=== PATIENT | female | born 1990 | race Caucasian/White ===

== ENCOUNTER → 2024-01-11 09:56 | Outpatient (BNVA) | payer OTHER, SELFPAY | PROVIDERS: PCP Family Medicine; Referring Provider Family Medicine; Visit Provider Nurse Practitioner Family | DX: L72.0 Epidermal cyst (principal); L91.0 Hypertrophic scar; D23.61 Other benign neoplasm of skin of right upper limb, including shoulder; D22.5 Melanocytic nevi of trunk; Z87.2 Personal history of diseases of the skin and subcutaneous tissue | CPT/HCPCS: 99203 ==

== ENCOUNTER → 2024-03-11 15:30 | Outpatient (BNVA) | payer OTHER, MEDICAID, SELFPAY | PROVIDERS: PCP Family Medicine; Visit Provider Emergency Medicine | DX: J02.9 Acute pharyngitis, unspecified (principal); J02.0 Streptococcal pharyngitis | CPT/HCPCS: 87071; 87880 ==

== ENCOUNTER → 2024-03-16 07:50 | Outpatient (BNVA) | payer OTHER, MEDICAID, SELFPAY | PROVIDERS: PCP Family Medicine; Visit Provider Dermatology | DX: D48.5 Neoplasm of uncertain behavior of skin (principal) | CPT/HCPCS: 11403; 13101 ==

== ENCOUNTER → 2024-05-20 07:59 | Outpatient (BNVA) | payer OTHER, MEDICAID, SELFPAY | PROVIDERS: PCP Family Medicine; Visit Provider Nurse Practitioner Women's Health | DX: N92.6 Irregular menstruation, unspecified (principal) | CPT/HCPCS: 81025 ==

== ENCOUNTER 2024-05-26 10:38 | Outpatient (CLI) | payer OTHER, MEDICAID, SELFPAY ==
--- NOTE | 2024-05-26 10:47 | US_ITS ---
WS: [id number] EARLY OBSTETRICAL ULTRASOUND (<14 WEEKS). HISTORY: O36.80X0 - with inconclusive viability, n... COMPARISON: None available. Single intrauterine gestational sac is identified. Cardiac activity at 159 BPM. [place]-rump length morgan sures 1.3 cm which corresponds to a gestation of 7w3d. Normal-appearing yolk sac and amnion demonstra navdeep. No subchorionic hemorrhage. No free fluid. LEFT ovary slightly enlarged measuring 3.8 x 2.8 x 4.0 cm. Within the central ovary is a minimally co mplex cyst consistent with a corpus luteum of with increased vascularity. Corpus luteum morgan sures 2.2 x 1.6 cm. RIGHT ovary is normal size 4.0 x 2.0 x 3.3 cm. Normal vascularity. US/US OB transvaginal [id number] IMPRESSION: 1. Single intrauterine gestation of 7w3d with an EDC of 01/09/2025. 2. Normal embryonic cardiac activity.
== END 2024-05-26 10:39 | disposition home or self-care (01) ==
LOC: RAD 10:42
PROVIDERS: PCP Family Medicine; Visit Provider Nurse Practitioner Women's Health
DX: O36.80X0 Pregnancy with inconclusive fetal viability, not applicable or unspecified (principal); Z34.91 Encounter for supervision of normal pregnancy, unspecified, first trimester; Z3A.01 Less than 8 weeks gestation of pregnancy
CPT/HCPCS: 76817

== ENCOUNTER → 2024-06-06 08:02 | Outpatient (BNVA) | payer OTHER, MEDICAID, SELFPAY | PROVIDERS: PCP Family Medicine; Visit Provider Nurse Practitioner Women's Health | DX: Z34.90 Encounter for supervision of normal pregnancy, unspecified, unspecified trimester (principal) | CPT/HCPCS: 80307; 84315; 85025; 86592; 86762; 86803; 86850; 86900; 87086; 87340; 87806 ==

== ENCOUNTER → 2024-06-15 16:17 | Outpatient (BNVA) | payer OTHER, MEDICAID, SELFPAY | PROVIDERS: PCP Family Medicine; Visit Provider Nurse Practitioner | DX: R05.9 Cough, unspecified (principal) | CPT/HCPCS: 87426 ==

== ENCOUNTER → 2024-06-23 16:38 | Outpatient (BNVA) | payer OTHER, MEDICAID, SELFPAY | PROVIDERS: PCP Family Medicine; Visit Provider Nurse Practitioner Women's Health | DX: Z34.80 Encounter for supervision of other normal pregnancy, unspecified trimester (principal); Z34.90 Encounter for supervision of normal pregnancy, unspecified, unspecified trimester; E66.01 Morbid (severe) obesity due to excess calories | CPT/HCPCS: 82950 ==

== ENCOUNTER → 2024-06-27 08:09 | Outpatient (BNVA) | payer OTHER, MEDICAID, SELFPAY | PROVIDERS: PCP Family Medicine; Visit Provider Obstetrics & Gynecology | DX: Z34.80 Encounter for supervision of other normal pregnancy, unspecified trimester (principal) | CPT/HCPCS: 82951; 82952; 84315 ==

== ENCOUNTER 2024-07-20 09:11 | Emergency (ER) | payer OTHER, MEDICAID, SELFPAY ==
[2024-07-20 09:29] VITALS: BP 112/64; PULSE 79; RESP 18; TEMP 36.7; O2SAT 98; BMI 45.3
--- NOTE | 2024-07-20 10:07 | USR_ITS ---
PROCEDURE INFORMATION: Exam: US , Limited Exam date and time: 07/20/2024 10:22 AM Age: 34 years old Clinical indication: Screening exam; Routine US, uterus; Additional info: Llq pain, 16 weeeks preg LABS AND CLINICAL REPORTS: Gestational age (Established): 15 w 6 d Estimated due date (Established): 01/05/2025 TECHNIQUE: Imaging protocol: Real-time ultrasound of the maternal uterus with image documentation. Exam focused on the clinical indication. COMPARISON: US OB transvaginal [id number] 05/26/2024 10:52 AM FINDINGS: Gestation: There is a single live intrauterine gestation identified. heart rate: 147 bpm. Placenta: The placenta is anteriorly located. MATERNAL: Cervix: The cervical length measures 4.8 cm. The cervix appears to be closed. Left ovary/adnexa: There is a simple appearing left ovarian cyst measuring 2.3 x 2.2 x 2.1 cm. US/US OB limited [id number] IMPRESSION: 1. Single live intrauterine gestation. The cervix appears to be closed. 2. Simple appearing left ovarian cyst.
[2024-07-20 10:11] VITALS: BP 114/64; PULSE 71; O2SAT 100
--- NOTE | 2024-07-20 10:15 | W.ED.ABDPA2 ---
HPI - Abdominal Pain General: Chief Complaint: Abdominal Pain Stated Complaint: abd pain /burping constantly (18wks preg) Time Seen by Provider: 07/20/24 10:02 History of Present Illness: 34-year-old female who is around 16 weeks who presents emergency room with belching and left lower quadrant abdominal pain. She said she has been having indigestion and belching. She had an episode of this a couple days ago and then again this morning. She said the belching was just terrible. She is also concerned about some left lower quadrant abdominal pain. Pain is not present at this time. No vaginal bleeding. No vaginal discharge. No dysuria. This seems to be in response to certain foods Related Data Home Medications Medication Instructions Recorded Confirmed docosahexaenoic acid 200 mg 200 mg PO DAILY 05/20/24 07/20/24 capsule ( DHA) fexofenadine 60 mg tablet 60 mg PO Q12H 07/20/24 07/20/24 Previous Rx's Medication Instructions Recorded diphenhydramine HCl 25 mg capsule 25 mg PO .q hs PRN allergy 04/25/24 symptoms/drainage #60 caps sertraline 100 mg tablet 100 mg PO DAILY #90 tabs 04/25/24 fluticasone propionate 50 1 spray intranasal BID 06/30/24 mcg/actuation nasal allergy/congestion #16 grams spray,suspension (Flonase Allergy Relief) famotidine 40 mg tablet 40 mg PO DAILY #30 tabs 07/20/24 Allergies Allergy/AdvReac Type Severity Reaction Status Date / Time No Known Allergies Allergy Verified 06/27/24 14:56 Review of Systems Narrative: Constitutional symptoms: Negative except as documented in HPI. Skin symptoms: Negative except as documented in HPI. Eye symptoms: Negative except as documented in HPI. ENMT symptoms: Negative except as documented in HPI. Respiratory symptoms: Negative except as documented in HPI. Cardiovascular symptoms: Negative except as documented in HPI. Gastrointestinal symptoms: Negative except as documented in HPI. Genitourinary symptoms: Negative except as documented in HPI. Musculoskeletal symptoms: Negative except as documented in HPI. Neurologic symptoms: Negative except as documented in HPI. Psychiatric symptoms: Negative except as documented in HPI. Endocrine symptoms: Negative except as documented in HPI. [facility] ED PFSH: Medical History Seasonal allergic rhinitis PTSD (post-traumatic stress disorder) Depression Anxiety History of skin cancer (~2022) feels it was basal cell -- 3 areas removed Bilateral carpal tunnel syndrome Surgical History H/O removal of cyst (~03/2024) performed by Dr. Clay-- likely sebaceous History of adenoidectomy Family History Father Aneurysm brain aneurysm Denies family history of Colon cancer Ovarian cancer Prostate cancer Diabetes Heart disease Hyperlipidemia Breast cancer Hypertension Uterine cancer Stroke Physical Exam Narrative: EXAM NARRATIVE: General: Alert, no acute distress. Skin: Warm, dry. Head: Normocephalic, atraumatic. Neck: Supple, trachea midline. Eye: Extraocular movements are intact. Ears, nose, mouth and throat: mucosa moist. Cardiovascular: Regular, Normal peripheral perfusion. Respiratory: Lungs are clear to auscultation, respirations are non-labored, breath sounds are equal, Symmetrical chest wall expansion. Gastrointestinal: Soft, Nontender, Non distended Musculoskeletal: Normal ROM, no deformity. Neurological: Alert and oriented, No focal neurological deficit observed. Psychiatric: Cooperative, appropriate mood & affect. Course Vital Signs: Vital signs: Vital Signs Temperature 98.0 F 07/20/24 09:29 Pulse Rate 71 07/20/24 10:11 Respiratory Rate 18 07/20/24 09:29 Blood Pressure 114/64 07/20/24 10:11 Pulse Oximetry 100 07/20/24 10:11 Oxygen Delivery Me thod Room Air 07/20/24 10:11 MDM - Abdominal Pain Medical Decision Making ultrasound: Normal fetus. Heart rate in the 140s. She does have a left ovarian cyst. This was reviewed and interpreted by myself the emergency room physician. I also reviewed the radiology report. Lab review: I reviewed and interpreted lab work personally. Lab work is unremarkable. No leukocytosis. Hemoglobin 12. BUN/creatinine 8 and 0.5. Urinalysis is clear. Assessment and plan: Indigestion Ovarian cyst ?IV Pepcid in the emergency room - Discharged home - Discussed findings and plan with patient. Answered any questions. - All laboratory values were reviewed and interpreted personally by myself, the ER physician - All imaging was reviewed and interpreted personally by myself, the ER physician. - Evaluation and treatment of this problem were appropriate in the emergency setting Lab Data 07/20/24 10:26 07/20/24 10: Labs/Radiology: Laboratory Results WBC 7.94 10^3/uL (3.29-11.43) 07/20/24 10: RBC 4.03 10^6/uL (3.85-5.65) 07/20/24 10: Hgb 11.90 g/dL (11.27-16.99) 07/20/24 10:26 Hct 36.5 % (36-47) 07/20/24 10: MCV 90.6 fl (85-98) 07/20/24 10: MCH 29.5 pg (27-33) 07/20/24 10: MCHC 32.6 g/dL (30-55) 07/20/24 10: RDW 12.7 % (12.1-15.1) 07/20/24 10: Plt Count 191 10^3/cmm (157-399) 07/20/24 10: MPV 9.7 fL (7.4-10.4) 07/20/24 10:26 Neut % (Auto) 74.5 % 07/20/24 10:26 Lymph % (Auto) 18.1 % 07/20/24 10:26 Walsh % (Auto) 4.5 % 07/20/24 10:26 Eos % (Auto) 1.5 % 07/20/24 10:26 Baso % (Auto) 0.3 % 07/20/24 10:26 Neut # (Auto) 5.91 10^3/uL (1.8-7.7) 07/20/24 10:26 Lymph # (Auto) 1.4 10^3/uL (0.8-4.8) 07/20/24 10:26 Walsh # (Auto) 0.4 10^3/uL (0.2-0.9) 07/20/24 10:26 Eos # (Auto) 0.1 10^3/uL (0.0-0.8) 07/20/24 10:26 Baso # (Auto) 0.0 10^3/uL (0.0-0.1) 07/20/24 10:26 Nucleated RBC % (auto) 0 % 07/20/24 10:26 Nucleated RBCs # 0.0 /100WBC 07/20/24 10:26 Sodium 136 mmol/L (136-145) 07/20/24 10:26 Potassium 3.9 mmol/L (3.5-5.1) 07/20/24 10:26 Chloride 104 mmol/L (98-107) 07/20/24 10:26 Carbon Dioxide 22 mmol/L (22-29) 07/20/24 10:26 Anion Gap 13.9 (5-19) 07/20/24 10:26 BUN 8 mg/dL (6-20) 07/20/24 10:26 Creatinine 0.5 mg/dL (0.5-0.9) 07/20/24 10: GFR Calculation 142.1 mL/min (90-130) H 07/20/24 10:26 Glucose 81 mg/dL (65-115) 07/20/24 10:26 Calculated Osmolality 279 mOsm/kg (285-295) L 07/20/24 10:26 Calcium 9.0 mg/dL (8.5-10.5) 07/20/24 10:26 Total Bilirubin 0.2 mg/dL (0.15-1.2) 07/20/24 10:26 AST 19 U/L (0-32) 07/20/24 10:26 ALT 29 U/L (0-33) 07/20/24 10:26 Alkaline Phosphatase 68 U/L (35-105) 07/20/24 10:26 Total Protein 6.7 g/dL (6.6-8.7) 07/20/24 10:26 Albumin 3.7 g/dL (3.5-5.2) 07/20/24 10:26 Globulin 3.0 g/dL (1.3-4.6) 07/20/24 10:26 Lipase 19 U/L (13-60) 07/20/24 10:26 HCG, Qual Positive (Negative) H 07/20/24 10:24 Urine Color Yellow (Yellow) 07/20/24 10:24 Urine Appearance Clear (CLEAR) 07/20/24 10:24 Urine pH 6.5 (5-7) 07/20/24 10:24 Ur Specific Harmony 1.018 (1.005-1.030) 07/20/24 10:24 Urine Protein Negative (Negative) 07/20/24 10:24 Urine Glucose (UA) Negative (Normal) 07/20/24 10:24 Urine Ketones Negative (Negative) 07/20/24 10:24 Urine Blood Negative (Negative) 07/20/24 10:24 Urine Nitrate Negative (Negative) 07/20/24 10:24 Urine Bilirubin Negative (Negative) 07/20/24 10:24 Urine Urobilinogen 1.0 mg/dL (Negative) 07/20/24 10:24 Ur Leukocyte Esterase 1+ (Negative) A 07/20/24 10:24 Urine RBC 0-2 /hpf (0-2) 07/20/24 10:24 Urine WBC 0-5 /hpf (0-5) 07/20/24 10:24 Ur Squamous Epith Cells 0-5 /hpf (0-5) 07/20/24 10:24 Amorphous Sediment Not Reportable 07/20/24 10:24 Urine Bacteria None seen /hpf (NONE) 07/20/24 10:24 Hyaline Casts 0.81 /lpf 07/20/24 10:24 All radiology interpretation(s) finalized by discharge Discharge Plan Discharge Patient Disposition: Home Clinical Impression: Indigestion, Belching, , Ovarian cyst Condition: Stable Prescriptions: New famotidine 40 mg tablet 40 mg PO DAILY Qty: 30 0RF No Action DHA 200 mg capsule 200 mg PO DAILY sertraline 100 mg tablet 100 mg PO DAILY Qty: 90 1RF diphenhydramine HCl 25 mg capsule 25 mg PO .q hs PRN (Reason: allergy symptoms/drainage) Qty: 60 2RF fluticasone propionate [Flonase Allergy Relief] 50 mcg/actuation spray,suspension 1 spray intranasal BID Qty: 16 1RF Rx Instructions: administer into each nostril fexofenadine [Marian] 60 mg Tablet 60 mg PO Q12H Discharge Orders: Discharge ED (Routine); Ordered 07/20/24 Ordered By: Norma Morgan Referrals: Yifan Montes MD [Primary Care Provider] - Discharge Diet: As Directed Discharge Activity: Increase activity as tolerated Patient Instructions: Indigestion (ED) Activity Restrictions/Additional Instructions: Thank you for choosing [facility] for your healthcare needs today. Please realize this is an emergency room and that we are providing you with a medical screening exam and this may not be complete and all inclusive of all the testing and or work up that you may need to determine your ailment or severity of your illness. You have been screened and evaluated and felt safe for discharge. Health conditions do change or evolve sometimes and as such it is important that you follow up with your Primary Doctor to be re checked, 3-5 days is a general good time frame for follow up. You are always welcome to return to the ED for re assessment if your symptoms are worsening or you have new concerns Coding Level of Care Code ED Commercial Stripper for Becki Olea
[2024-07-20 10:32] LABS: HCG Qualitative Urine. Positive (Negative)
[2024-07-20 10:34] LABS: Bilirubin Urine Negative (Negative); Blood Urine Negative (Negative); Glucose Urine UA Negative (Normal); Ketones Urine Negative (Negative); Leukocyte Esterase Urine 1+ (Negative); Nitrate Urine Negative (Negative); Protein Urine Negative (Negative); Specific Gravity, Urine 1.018 (1.005-1.030); Urine Appearance Clear (CLEAR); Urine Color Yellow (Yellow); pH Urine 6.5 (5-7)
[2024-07-20 10:34] LABS: Basophils % 0.3 %; Eosinophils # 0.1 10^3/uL (0.0-0.8); Eosinophils % 1.5 %; Hematocrit 36.5 % (36-47); Lymphocytes # 1.4 10^3/uL (0.8-4.8); Lymphocytes % 18.1 %; Mean Corpuscular HGB Conc 32.6 g/dL (30-55); Mean Corpuscular Hemoglobin 29.5 pg (27-33); Mean Corpuscular Volume 90.6 fl (85-98); Mean Platelet Volume 9.7 fL (7.4-10.4); Monocytes # 0.4 10^3/uL (0.2-0.9); Monocytes % 4.5 %; Neutrophils # 5.91 10^3/uL (1.8-7.7); Neutrophils % 74.5 %; Nucleated Red Blood Cells % 0 %; Platelet Count 191 10^3/cmm (157-399); Red Blood Count 4.03 10^6/uL (3.85-5.65); Red Cell Distribution Width 12.7 % (12.1-15.1); White Blood Count 7.94 10^3/uL (3.29-11.43)
[2024-07-20 10:39] LABS: Add Urine Microscopic? YES; Bacteria Urine None Seen /hpf; Hyaline Casts Urine 0.81 /lpf; RBC Urine 0-2 /hpf (0-2); Squamous Epithelial Cell Urine 0-5 /hpf (0-5); WBC Urine 0-5 /hpf (0-5)
[2024-07-20] MEDS: famotidine 20 mg/2 mL INJ 40 MG IVP (10:42)
[2024-07-20 10:51] LABS: Alanine Aminotransferase 29 U/L (0-33); Albumin Level 3.7 g/dL (3.5-5.2); Alkaline Phosphatase 68 U/L (35-105); Anion Gap 13.9 (5-19); Aspartate Amino Transferase 19 U/L (0-32); Blood Urea Nitrogen 8 mg/dL (6-20); Carbon Dioxide 22 mmol/L (22-29); Chloride 104 mmol/L (98-107); Creatinine Clr Calc Pharmacy 203.9281; Glomerular Filtration Rate 142.1 mL/min (90-130); Glucose 81 mg/dL (65-115); Lipase 19 U/L (13-60); Osmolality Calculated 279 mOsm/kg (285-295); Potassium 3.9 mmol/L (3.5-5.1); Sodium 136 mmol/L (136-145); Total Bilirubin 0.2 mg/dL (0.15-1.2); Total Protein 6.7 g/dL (6.6-8.7)
[2024-07-20 11:01] LABS: Add Urine Culture? No
[2024-07-20 12:27] VITALS: BP 118/90; PULSE 70; O2SAT 100
== END 2024-07-20 12:04 | disposition home or self-care (01) ==
PROVIDERS: Student in an Organized Health Care Education/Training Program; Emergency Provider Emergency Medicine; PCP Family Medicine
DX: O26.892 Other specified pregnancy related conditions, second trimester (principal); K30 Functional dyspepsia; R14.2 Eructation; O34.82 Maternal care for other abnormalities of pelvic organs, second trimester; N83.202 Unspecified ovarian cyst, left side; Z3A.16 16 weeks gestation of pregnancy
CPT/HCPCS: 36415; 76815; 80053; 81001; 81025; 83690; 85025; 96374; 99284; J3490

== ENCOUNTER → 2024-07-22 14:15 | Outpatient (BNVA) | payer OTHER, MEDICAID, SELFPAY | PROVIDERS: PCP Family Medicine; Visit Provider Nurse Practitioner Women's Health | DX: Z34.80 Encounter for supervision of other normal pregnancy, unspecified trimester (principal); R82.90 Unspecified abnormal findings in urine | CPT/HCPCS: 82105; 84315; 87086 ==

== ENCOUNTER → 2024-08-18 09:24 | Outpatient (BNVA) | payer OTHER, MEDICAID, SELFPAY | PROVIDERS: PCP Family Medicine; Visit Provider Obstetrics & Gynecology | DX: Z36.9 Encounter for antenatal screening, unspecified (principal) | CPT/HCPCS: 76805 ==

== ENCOUNTER → 2024-09-21 08:33 | Outpatient (BNVA) | payer OTHER, MEDICAID, SELFPAY | PROVIDERS: PCP Family Medicine; Visit Provider Nurse Practitioner Women's Health | DX: Z36.9 Encounter for antenatal screening, unspecified (principal) | CPT/HCPCS: 76816; 82951; 82952; 84315 ==

== ENCOUNTER → 2024-10-20 09:07 | Outpatient (BNVA) | payer OTHER, MEDICAID, SELFPAY | PROVIDERS: PCP Family Medicine; Visit Provider Obstetrics & Gynecology | DX: Z34.80 Encounter for supervision of other normal pregnancy, unspecified trimester (principal) | CPT/HCPCS: 84315; 85025 ==

== ENCOUNTER → 2024-10-28 12:37 | Outpatient (BNVA) | payer OTHER, MEDICAID, SELFPAY | PROVIDERS: PCP Family Medicine; Visit Provider Obstetrics & Gynecology | DX: Z34.80 Encounter for supervision of other normal pregnancy, unspecified trimester (principal) | CPT/HCPCS: 84315 ==

== ENCOUNTER → 2024-11-01 08:07 | Outpatient (BNVA) | payer OTHER, MEDICAID, SELFPAY | PROVIDERS: PCP Family Medicine; Visit Provider Obstetrics & Gynecology | DX: Z36.9 Encounter for antenatal screening, unspecified (principal) | CPT/HCPCS: 76816 ==

== ENCOUNTER → 2024-11-07 08:03 | Outpatient (BNVA) | payer OTHER, MEDICAID, SELFPAY | PROVIDERS: PCP Family Medicine; Visit Provider Emergency Medicine | DX: R50.9 Fever, unspecified (principal) | CPT/HCPCS: 87400 ==

== ENCOUNTER 2024-11-10 17:20 | Outpatient (CLI) | payer OTHER, MEDICAID, SELFPAY ==
[2024-11-10 17:33] VITALS: RESP 18; BMI 49.1
[2024-11-10 17:37] VITALS: BP 122/67; PULSE 87; PULSE 93; O2SAT 91; O2SAT 96
--- NOTE | 2024-11-10 17:48 | USR_ITS ---
PROCEDURE INFORMATION: Exam: US Biophysical Profile Without Non-Stress Test Exam date and time: 11/10/2024 6:00 PM Age: 34 years old Clinical indication: Other: SOB; TECHNIQUE: Imaging protocol: US biophysical profile without non-stress testing. COMPARISON: [place] [id number] 11/01/2024 8:09 AM FINDINGS: heart rate: 138 bpm presentation and position: Cephalic presentation. Amniotic fluid index: INOCENCIA is 14.88 cm. BIOPHYSICAL PROFILE: breathing (BPP): 2 out of 2. gross body movement (BPP): 2 out of 2. tone (BPP): 2 out of 2. Amniotic fluid (BPP): 2 out of 2. MATERNAL ANATOMY: Cervix: Cervical length measures 3.3 cm, but poor acoustic windows on transabdominal imaging. US/US OB BPP wo NST [id number] IMPRESSION: 1. Single live cephalic presentation intrauterine gestation. 2. Biophysical profile score 8/8.
[2024-11-10 17:52] VITALS: BP 114/63; PULSE 87
[2024-11-10 18:07] VITALS: BP 116/67; PULSE 83
[2024-11-10 18:23] VITALS: BP 116/62; PULSE 86
[2024-11-10 18:37] VITALS: BP 124/60; PULSE 90
== END 2024-11-10 18:51 | disposition home or self-care (01) ==
LOC: OPOB 17:23 → OBGYN 17:23
PROVIDERS: PCP Family Medicine; Visit Provider Obstetrics & Gynecology
DX: O26.899 Other specified pregnancy related conditions, unspecified trimester (principal); Z3A.00 Weeks of gestation of pregnancy not specified; R06.00 Dyspnea, unspecified
CPT/HCPCS: 59025; 76819; 99211

== ENCOUNTER 2024-11-10 18:55 | Emergency (ER) | payer OTHER, MEDICAID, SELFPAY ==
[2024-11-10 19:18] VITALS: BP 122/78; PULSE 91; RESP 18; TEMP 36.8; O2SAT 99; BMI 37.8
--- NOTE | 2024-11-10 20:31 | XRR_ITS ---
PROCEDURE INFORMATION: Exam: XR Chest Exam date and time: 11/10/2024 8:36 PM Age: 34 years old Clinical indication: Cough and shortness of breath; Additional info: Cough; Shield/preg TECHNIQUE: Imaging protocol: Radiologic exam of the chest. Views: 1 view. COMPARISON: No relevant prior studies available. FINDINGS: Lungs: Unremarkable. No consolidation. Pleural spaces: Unremarkable. No pleural effusion. No pneumothorax. Heart/Mediastinum: Unremarkable. No cardiomegaly. Bones/joints: Unremarkable. XR/XR chest 1V portable [id number] IMPRESSION: No acute findings.
--- NOTE | 2024-11-10 20:31 | W.ED.URI ---
HPI - URI/Sore Throat General: Chief Complaint: Upper Respiratory Infection Stated Complaint: hard to breath, Cough Time Seen by Provider: 11/10/24 20:20 Source: patient Mode of arrival: ambulatory Limitations: no limitations History of Present Illness: Patient is a nice 34-year-old female here for complaints of cough, chest congestion, fatigue, fever, body aches, and shortness of breath/difficulty breathing. She first noticed symptoms approximately 5 days or so ago and started with fevers. Fevers were as high as 100.3. She states these have overall went away but the remainder of her symptoms have continued. She feels like her cough and shortness of breath is worsening. She is 33 weeks . She was seen by OB prior to arrival to the emergency department and was cleared from their end. She had seen walk-in clinic earlier this week for symptoms and recommended conservative therapy. They did swab for influenza but this was negative. She arrives clinically in no acute distress with stable vital signs. MD elicited complaint: fever, cough, nasal congestion and other (sob) Onset (ago): day(s) Consistency: constant Severity: moderate Description of mucous: clear Able to tolerate fluids by mouth: Yes Exacerbating factors: nothing Relieving factors: nothing Associated symptoms: Reports fever(s), headache(s) and nasal congestion; Deny chest pain, diarrhea, ear or mastoid pain, nausea or vomiting Treatments prior to arrival: none Related Data Home Medications Medication Instructions Recorded Confirmed docosahexaenoic acid 200 mg 200 mg PO DAILY 05/20/24 11/07/24 capsule ( DHA) fexofenadine 60 mg tablet 60 mg PO Q12H 07/20/24 11/07/24 Previous Rx's Medication Instructions Recorded diphenhydramine HCl 25 mg capsule 25 mg PO .q hs PRN allergy 04/25/24 symptoms/drainage #60 caps sertraline 100 mg tablet 100 mg PO DAILY #90 tabs 04/25/24 famotidine 40 mg tablet 40 mg PO DAILY #30 tabs 08/18/24 fluticasone propionate 50 1 spray intranasal BID 09/12/24 mcg/actuation nasal allergy/congestion #16 grams spray,suspension (Flonase Allergy Relief) Allergies Allergy/AdvReac Type Severity Reaction Status Date / Time No Known Allergies Allergy Verified 11/07/24 07:52 Review of Systems Const: Reports: fever(s), body aches and fatigue Eyes: Denies: change in vision, blurry vision, photophobia, floaters or seeing flashes ENMT: Reports: nasal discharge and nasal congestion; Denies: throat pain, odynophagia or ear or mastoid pain Card: Denies: chest pain, palpitations, lightheadedness, syncope or pre-syncope Resp: Reports: dyspnea, non-productive cough and chest congestion; Denies: wheezing or hemoptysis GI: Denies: nausea, vomiting or diarrhea : Denies: flank pain or dysuria Musc: Denies: neck pain, back pain, extremity pain, extremity swelling, joint pain or joint swelling Skin/Breast: Denies: rash Neuro: Reports: headache(s) PFSH ED PFSH: Medical History No pertinent past medical history neghx: htn, dm, thyroid, dvt/pe PCP: Dr. Montes Seasonal allergic rhinitis PTSD (post-traumatic stress disorder) Depression Anxiety History of skin cancer (~2022) feels it was basal cell -- 3 areas removed Bilateral carpal tunnel syndrome Surgical History H/O removal of cyst (~03/2024) performed by Dr. Clay-- likely sebaceous History of adenoidectomy Family History Father Aneurysm brain aneurysm Denies family history of Colon cancer Ovarian cancer Prostate cancer Diabetes Heart disease Hyperlipidemia Breast cancer Hypertension Uterine cancer Stroke Social History Smoking and tobacco/nicotine status: never used tobacco/nicotine Second hand smoke exposure: No Alcohol intake: never Substance/Drug Use: never Physical Exam Const: COMMON NORMALS: no acute distress, average body habitus, patient oriented x3, no limitations, healthy appearing, alert and well nourished GENERAL APPEARANCE: cooperative HENMT: COMMON NORMALS: normocephalic, atraumatic, hearing grossly normal bilaterally, external ears normal, EAC's normal, TM's normal bilaterally, Normal external nose present, Normal nasal mucous membranes and turbinates present, moist oral mucous membranes and oropharynx normal HEAD & SCALP: normal to inspection, normocephalic and atraumatic FACE & SINUS: normal facial exam and sinuses nontender NOSE: Normal external nose present and Normal nasal mucous membranes and turbinates present EXTERNAL EAR: Yes external ears normal EXTERNAL AUDITORY CANAL: EAC's normal TYMPANIC MEMBRANE: TM's normal bilaterally MOUTH: Normal oral and palatal mucosa present and lip normal THROAT: posterior oropharynx normal and tonsils normal Eye: GENERAL EYE: appearance normal, both eyes and all related structures Neck/C-Spine: COMMON NORMALS: no lymphadenopathy Resp: COMMON NORMALS: normal respiratory effort and clear to auscultation bilaterally AUSCULTATION: clear to auscultation bilaterally Cardio: COMMON NORMALS: regular rate and regular rhythm RATE: regular rate RHYTHM: regular rhythm GI: INSPECTION: Yes gravid abdomen : COMMON NORMALS: Yes no CVA tenderness BLADDER/KIDNEY EXAM: Yes no CVA tenderness Back/Pelvis: COMMON NORMALS: no CVA tenderness Neuro: COMMON NORMALS: patient oriented x3 SENSORIUM/ORIENTATION: Yes alert Course Vital Signs: Vital signs: Vital Signs Temperature 98.2 F 11/10/24 19:18 Pulse Rate 91 11/10/24 19:18 Respiratory Rate 18 11/10/24 19:18 Blood Pressure 122/78 11/10/24 19:18 Pulse Oximetry 99 11/10/24 19:18 MDM - URI/Sore Throat Medical Decision Making Patient is positive for influenza A. Again she arrives in no acute distress with stable vital signs. She has no labored breathing or respiratory distress at this time. She is outside the window for Tamiflu. We discussed conservative therapies at home and safe medication she can use during . Return to ED precautions given. Differential Diagnosis Likely upper respiratory infection, viral infection, bronchitis and influenza Medical Records I reviewed the patient's medical records. Lab Data I reviewed the patient's lab results. Laboratory Results Coronavirus (PCR) Negative (Negative) 11/10/24 19:50 Influenza A (PCR) Positive (Negative) 11/10/24 19:50 Influenza Type B (PCR) Negative (Negative) 11/10/24 19:50 RSV (PCR) Negative (Negative) 11/10/24 19:50 XR interpretation done by ED provider, pending radiology final review Discharge Plan Discharge Patient Disposition: Home Clinical Impression: Influenza Condition: Stable Prescriptions: No Action DHA 200 mg capsule 200 mg PO DAILY sertraline 100 mg tablet 100 mg PO DAILY Qty: 90 1RF diphenhydramine HCl 25 mg capsule 25 mg PO .q hs PRN (Reason: allergy symptoms/drainage) Qty: 60 2RF famotidine 40 mg tablet 40 mg PO DAILY Qty: 30 6RF fluticasone propionate [Flonase Allergy Relief] 50 mcg/actuation spray,suspension 1 spray intranasal BID Qty: 16 1RF Rx Instructions: administer into each nostril fexofenadine [Marian] 60 mg Tablet 60 mg PO Q12H Discharge Orders: Discharge ED (Routine); Ordered 11/10/24 Ordered By: Kim Us Referrals: Yifan Montes MD [Primary Care Provider] - Patient Instructions: Influenza (DC) Coding Level of Care Code ED Engineering Technician Parking for Becki Olea
[2024-11-10 20:39] LABS: Covid PCR NEGATIVE (Negative); Influenza A POSITIVE (Negative); Influenza B NEGATIVE (Negative); Respiratory Syncytial Virus Ce NEGATIVE (Negative)
== END 2024-11-10 21:03 | disposition home or self-care (01) ==
PROVIDERS: Emergency Provider Physician Assistant; PCP Family Medicine
DX: J10.1 Influenza due to other identified influenza virus with other respiratory manifestations (principal); Z11.52 Encounter for screening for COVID-19
CPT/HCPCS: 71045; 87637; 99284

== ENCOUNTER → 2024-11-25 14:15 | Outpatient (BNVA) | payer OTHER, MEDICAID, SELFPAY | PROVIDERS: PCP Family Medicine; Visit Provider Nurse Practitioner Women's Health | DX: Z34.90 Encounter for supervision of normal pregnancy, unspecified, unspecified trimester (principal) | CPT/HCPCS: 84315 ==

== ENCOUNTER → 2024-12-09 09:56 | Outpatient (BNVA) | payer OTHER, MEDICAID, SELFPAY | PROVIDERS: PCP Family Medicine; Visit Provider Obstetrics & Gynecology | DX: O60.10X0 Preterm labor with preterm delivery, unspecified trimester, not applicable or unspecified (principal); O14.90 Unspecified pre-eclampsia, unspecified trimester; O14.23 HELLP syndrome (HELLP), third trimester | CPT/HCPCS: 80053 ==

== ENCOUNTER → 2024-12-16 09:30 | Outpatient (BNVA) | payer OTHER, MEDICAID, SELFPAY | PROVIDERS: PCP Family Medicine; Visit Provider Obstetrics & Gynecology | DX: O14.25 HELLP syndrome, complicating the puerperium (principal); Z39.2 Encounter for routine postpartum follow-up | CPT/HCPCS: 80053; 81000 ==

== ENCOUNTER → 2025-01-12 10:36 | Outpatient (BNVA) | payer OTHER, MEDICAID, SELFPAY | PROVIDERS: PCP Family Medicine; Visit Provider Obstetrics & Gynecology | DX: Z01.419 Encounter for gynecological examination (general) (routine) without abnormal findings (principal) | CPT/HCPCS: 87624 ==

== ENCOUNTER 2025-01-24 07:44 | Day surgery (SDC) | payer OTHER, MEDICAID, SELFPAY ==
[2025-01-24] VITALS (11 sets, daily range): BP systolic 107–131; BP diastolic 74–91; PULSE 55–80; RESP 11–20; TEMP 36.1–36.6; O2SAT 91–97; BMI 42.9
--- NOTE | 2025-01-24 02:24 | P.HP_ITS ---
Same Day Surgery H&P Indication for Procedure/HPI DATE OF PROCEDURE: January 24, 2025 CHIEF COMPLAINT/INDICATIONFOR SURGICAL PROCEDURE: Desires permanent sterilization PREOP DIAGNOSIS: Desires permanent sterilization PLANNED PROCEDURE: Operation Date: 01/24/25 09:35 Proposed Procedures p Laparoscopic BILATERAL Salpingectomy(Bilateral) - Miguel Stevens MD 34 y.o. A2 wants permanent sterilization Medications/Allergies* Home Medications ?Medication ?Instructions ?Recorded ?Confirmed ?Type docosahexaenoic acid 200 mg 200 mg PO DAILY 05/20/24 0 01/23/25 History capsule ( DHA) Allergies/Adverse Reactions Allergy/AdvReac Type Severity Reaction Status Date / Time No Known Allergies Allergy Verified 01/12/25 07:56 Pertinent History/Comorbid Conditions* Medical History (Updated 01/13/25 @ 00:14 by Miguel Stevens MD) No pertinent past medical history neghx: htn, dm, thyroid, dvt/pe PCP: Dr. Montes Seasonal allergic rhinitis PTSD (post-traumatic stress disorder) Depression Anxiety History of skin cancer (~2022) feels it was basal cell -- 3 areas removed Bilateral carpal tunnel syndrome Surgical History (Updated 05/20/24 @ 08:32 by Ros Gutierrez APN, RICHARD) H/O removal of cyst (~03/2024) performed by Dr. Clay-- likely sebaceous History of adenoidectomy Family History (Updated 05/20/24 @ 08:15 by Meena Hernandez LPN) Aneurysm Father brain aneurysm Denies family history of Colon cancer Ovarian cancer Prostate cancer Diabetes Heart disease Hyperlipidemia Breast cancer Hypertension Uterine cancer Stroke Social History Smoking and tobacco/nicotine status: never used tobacco/nicotine Second hand smoke exposure: No Alcohol intake: never Substance/Drug Use: never Pertinent Exam Findings alert, oriented x 3, clear to auscultation bilaterally and regular rate & rhythm Recommendations Surgery/Procedure today Coding Level of Care Code Acute Code for Chg Fwd
[2025-01-24] MEDS: sodium chloride 0.9% 1,000 ML 30 ML IV (08:22)
--- NOTE | 2025-01-24 08:28 | W.PM.OPSUD ---
Surgery/Procedure H&P Update DATE OF PROCEDURE: January 24, 2025 DATE H&P PERFORMED: 01/24/25 H&P UPDATE INFORMATION: I have reviewed H&P completed within last 30 days, I have examined patient prior to procedure and No changes to prior documentation PREOP DIAGNOSIS: Desires permanent sterilization PLANNED PROCEDURE: Operation Date: 01/24/25 09:35 Proposed Procedures p Laparoscopic BILATERAL Salpingectomy(Bilateral) - Miguel Stevens MD
--- NOTE | 2025-01-24 08:56 | ANES.PREANE2 ---
Pre-Anesthetic Assessment Height/Weight: Height 1.63 m Weight 113.398 kg Temp Pulse Resp BP Pulse Ox O2 Del Method 97.3 F L 80 18 116/80 97 Room Air 01/24/25 08:06 01/24/25 08:06 01/24/25 08:06 01/24/25 08:06 01/24/25 08:06 01/24/25 08:06 Preop Diagnosis: Desires permanent sterilization Operation Date: 01/24/25 09:35 Proposed Procedures p Laparoscopic BILATERAL Salpingectomy(Bilateral) - Miguel Stevens MD Last intake: Intake Last Liquid Date 01/24/25 Last Liquid Time 23:30 Last Solid Date 01/24/25 Last Solid Time 08:13 Social No alcohol and No tobacco Exam alert, oriented x 3, clear to auscultation bilaterally and regular rate & rhythm Airway Submandibular: within normal limits Cervical ROM: within normal limits Mallampati: Class II History/ROS No significant history except as noted CV/HEM Hypertension (PIH) Neuropsych Anxiety and Depression PTSD Anesthetic Plan ASA status: 2 Anesthesia: General Medications/Allergies Home Medications ?Medication ?Instructions ?Recorded ?Confirmed ?Last Taken ?Type diphenhydramine HCl 25 mg capsule 25 mg PO .q hs PRN allergy 04/25/24 01/23/25 01/23/25 Rx symptoms/drainage #60 caps docosahexaenoic acid 200 mg 200 mg PO DAILY 05/20/24 01/23/25 01/23/25 History capsule ( DHA) fluticasone propionate 50 1 spray intranasal BID 09/12/24 01/23/25 01/23/25 Rx mcg/actuation nasal allergy/congestion #16 grams spray,suspension (Flonase Allergy Relief) sertraline 100 mg tablet 100 mg PO DAILY #90 tabs 01/11/25 01/23/25 01/23/25 Rx Allergies Allergy/AdvReac Type Severity Reaction Status Date / Time No Known Allergies Allergy Verified 01/24/25 08:02 Current Medications Generic Name Dose Route Start Last Admin Trade Name Freq PRN Reason Stop Dose Admin Sodium Chloride 1,000 mls @ 30 mls/hr 01/24/25 08:00 01/24/25 08:22 Sodium Chloride 0.9% IV 01/25/25 07:59 30 mls/hr .Q24H CARLOS Administration PFSH Anesthesia Medical History No pertinent past medical history neghx: htn, dm, thyroid, dvt/pe PCP: Dr. Montes Seasonal allergic rhinitis PTSD (post-traumatic stress disorder) Depression Anxiety History of skin cancer (~2022) feels it was basal cell -- 3 areas removed Bilateral carpal tunnel syndrome Surgical History H/O removal of cyst (~03/2024) performed by Dr. Clay-- likely sebaceous History of adenoidectomy Family History Father Aneurysm brain aneurysm Denies family history of Colon cancer Ovarian cancer Prostate cancer Diabetes Heart disease Hyperlipidemia Breast cancer Hypertension Uterine cancer Stroke Social History Smoking and tobacco/nicotine status: never used tobacco/nicotine Second hand smoke exposure: No Alcohol intake: never Substance/Drug Use: never Data Anesthesia Cardiac Studies: No Data to Display
--- NOTE | 2025-01-24 11:05 | P.OP_ITS ---
Operative Report Date of procedure: January Pre-op diagnosis: desires permanent sterilization Post-op diagnosis: same Post-op findings: normal uterus, tubes, and ovaries Procedure done: laparoscopic bilateral salpingectomy Implants: none Specimens removed/disposition: bilateral fallopian tube segments Surgeon: Miguel Stevens MD Anesthesia: General Estimated blood loss (mL): 5 Complications: none Findings: normal uterus, tubes, and ovaries Condition: stable Disposition: PACU Brief History: 34 y.o. desires permanent sterilization Procedure: Informed consent was obtained. The patient was taken to the OR and placed on the table. General endotracheal anesthesia was induced. The abdomen was then prepped and draped in the usual fashion. A 5 mm subumbilical skin incision was made. A 5 mm trocar with sheath was then inserted into the peritoneal cavity under direct visualization with the laparoscope. After confirming intraperitoneal position, pneumoperitoneum was achieved. Two separate 5 mm incisions were made in the right and left mid- quadrants. 5 mm trocars with sheaths were then inserted into the peritoneal cavity under direct visualization with the laparoscope. The right fallopian tube was then identified to its fimbrial end. Starting at the fimbrial end, the mesosalpinx was then coagulated and cut using the Ligasure. The right fallopian tube was excised and removed via one of the ports. This was sent to pathology. There was no bleeding seen. Similarly, the left fallopian tube was identified to its fimbrial end. The left fallopian tube was excised and removed, sent to pathology. There was no bleeding. All instruments were then removed from the peritoneal cavity after the pneu moperitoneum was allowed to escape. The skin incisions were closed using 3-O chromic in subcuticular fashion. Dermabond was applied. The patient was then placed supine and awakened, taken the the PACU in good condition. Postop condition: stable EBL: 5 cc Complications: none Sponge, needles, and instruments counts correct x two
--- NOTE | 2025-01-24 12:28 | P.ANESPOST_ITS ---
Inpatient post-anesthesia follow up: Vital signs: Temperature 98 F Pulse Rate 60 Respiratory Rate 16 Blood Pressure 116/74 Pulse Oximetry 95 Oxygen Delivery Me thod Room Air Oxygen Flow Rate Fraction of Inspir ed Oxygen Hydration adequate: Yes Nausea and vomiting: No Pain level: Con trolled Mental status: Baseline
== END 2025-01-24 11:16 | disposition home or self-care (01) ==
PROVIDERS: PCP Family Medicine; Visit Provider Obstetrics & Gynecology
PROC: (CPT 58661; principal; 2025-01-24 09:25)
DX: Z30.2 Encounter for sterilization (principal); F41.9 Anxiety disorder, unspecified; F32.A Depression, unspecified; F43.10 Post-traumatic stress disorder, unspecified; Z79.899 Other long term (current) drug therapy
CPT/HCPCS: 58661; 88302; J1171; J2704; J3490; J7030; J9999